=== PATIENT | male | born 1990 | race Caucasian/White ===

== ENCOUNTER 2016-09-28 21:59 | Emergency (ER) | payer BC ==
[2016-09-28 23:02] LABS: ACETAMINOPHEN < 10 ug/mL (10-30)
[2016-09-28 23:21] VITALS: BP 131/72
[2016-09-28] MEDS ORDERED: OLANZapine 10 MG Vial IM ONE (23:25)
--- NOTE | 2016-09-29 05:19 | ER ---
DATE SEEN: 09/28/2016 TIME SEEN: 2300 hours. CHIEF COMPLAINT: Hallucinations. HISTORY OF PRESENT ILLNESS: A 26-year-old male, who comes in because of hallucinations. He was seeing faces in the [place] and was brought in for that reason. He complains of no chest pain, shortness of breath. He denies any headache and does not have any homicidal or suicidal ideation. He has a history of drug abuse, but he states that he has not done any drugs in the last 2 months. REVIEW OF SYSTEMS: All other systems are negative. PAST MEDICAL HISTORY: Mesenteric duodenal compression syndrome and dehydration. ALLERGIES: Reviewed. MEDICATIONS: Reviewed. PHYSICAL EXAMINATION: GENERAL: He is not in distress. VITAL SIGNS: His blood pressure and temperature were within normal limits. ENT: Negative. NECK: Supple. CHEST: Clear. MENTAL STATUS: He is alert, pressured speech, but no signs of suicidal ideation. He is fidgety and restless. LABORATORY DATA: The urine drug screen was positive for MDMA, amphetamines, and marijuana, also positive for benzodiazepines. IMPRESSION: Drug abuse. PLAN: The patient admitted had taken marijuana and also some benzodiazepines for anxiety along with about a week ago a friend's Adderall. He also had been drinking last week and has not slept for 2 days. He does not seem to be in danger and he is in the company of his mom, aunt, and brother. I discharged him home in satisfactory condition for followup in the office for anxiety and depression. /[id number] BARBARA/GUILHERME
== END 2016-09-28 23:20 | disposition home or self-care (01) ==
LOC: FB.ED 21:59
DX: F15.10 Other stimulant abuse, uncomplicated (principal); F12.10 Cannabis abuse, uncomplicated; F13.10 Sedative, hypnotic or anxiolytic abuse, uncomplicated
CPT/HCPCS: 36415; 80053; 80305; 85025; 96372; 99285; G0480; S0166